=== PATIENT | female | born 1980 | race Caucasian/White ===

== ENCOUNTER → 2019-10-22 | Outpatient (CLI) | payer OTHER ==
[~2019-10-22] MED LIST: HYDROCODON-ACE1 EAC7 PO; MAXALT MLT ODT10 M1 PO; ZOFRAN4 MG PO
== END ==
LOC: M.ULTRA 11:30
DX: R59.0 Localized enlarged lymph nodes (principal); L29.9 Pruritus, unspecified; R61 Generalized hyperhidrosis